=== PATIENT | male | born 1970 | race Caucasian/White ===

== ENCOUNTER 2023-01-13 12:30 | Emergency (ER) | payer OTHER ==
[~2023-01-13] VITALS: Ht 180.3 cm; Wt 98.1 kg
[2023-01-13 14:49] LABS: BASOPHILS % 0.5 % (0.0-2.0); EOSINOPHILS % 1.8 % (0.0-5.0); HEMATOCRIT. 47.9 % (42.0-52.0); HEMOGLOBIN. 16.7 g/dL (14.0-18.0); LYMPHOCYTES % 15.5 % (20.0-50.0); MEAN CORPUSCULAR HEMOGLOBIN 29.7 pg (28.0-32.0); MEAN CORPUSCULAR VOLUME 85.2 fL (80.0-94.0); MEAN PLATELET VOLUME 8.4 fl (7.4-10.4); MONOCYTES % 8.5 % (2.0-8.0); NEUTROPHILS % 73.7 % (40.0-76.0); PLATELET 212 x1000/uL (130-400); RED BLOOD CELL COUNT 5.62 mill/uL (4.7-6.1); RED CELL DISTRIBUTION WIDTH 13.5 % (11.6-14.6)
[2023-01-13 14:56] LABS: CHLORIDE 103 mEq/L (98-107); PROTHROMBIN TIME 10.9 sec (9.6-11.0)
[2023-01-13 15:05] LABS: ETHANOL BLOOD < 10 mg/dL
[2023-01-13] MEDS ORDERED: IOHEXOL-350 100 ML BOTTLE ONE (15:06)
[2023-01-13] MEDS ORDERED: P20 MT ×2 (15:27→15:49)
[2023-01-13] MEDS ORDERED: VALA100044 MT (15:27)
[2023-01-13] MEDS ORDERED: PREDNISONE 20MG TABLET PO ONE (15:30)
[2023-01-13 16:00] VITALS: BP 154/97
[2023-01-13] MEDS: PREDNISONE 20MG TABLET PO NR ×2 (16:07→16:13)
== END 2023-01-13 16:15 | disposition home or self-care (01) ==
LOC: ER 12:57
DX: G51.0 Bell's palsy (principal); J45.909 Unspecified asthma, uncomplicated; Z79.899 Other long term (current) drug therapy
CPT/HCPCS: 36415; 70450; 70496; 70498; 71045; 80053; 80320; 85025; 85610; 93005; 99291; J7512; Q9967; G0480